=== PATIENT | male | born 1995 | race Caucasian/White ===

== ENCOUNTER 2024-05-29 12:39 | Emergency (ER) | payer MEDICAID ==
[~2024-05-29] VITALS: Ht 167.6 cm; Wt 57.0 kg
[~2024-05-29 12:39] MED LIST: NO HOME MEDS
[2024-05-29 12:41] VITALS: BP 123/80
[2024-05-29] MEDS: LIDOcaine 1% 30ml preserv. free vial SQ STA (13:37)
[2024-05-29 14:18] VITALS: PULSE 95; RESP 16; TEMP 99; O2SAT 99
== END 2024-05-29 14:23 | disposition home or self-care (01) ==
LOC: ER 12:40
DX: S61.012A Laceration without foreign body of left thumb without damage to nail, initial encounter (principal); X58.XXXA Exposure to other specified factors, initial encounter; Y93.89 Activity, other specified; Y92.89 Other specified places as the place of occurrence of the external cause; Y99.8 Other external cause status
CPT/HCPCS: 12001; 99282; A6449